=== PATIENT | male | born 1945 | race Caucasian/White ===

== ENCOUNTER 2016-04-12 13:33 | Emergency (ER) | payer MEDICARE, MEDICAID ==
[2016-04-12 14:07] VITALS: BMI 24.3
[2016-04-12 14:08] VITALS: BP 119/74; PULSE 88; TEMP 98
[2016-04-12] MEDS ORDERED: LIDOCAINE 2% 5 ML (PRESERVATIVE FREE) VIAL INF ONE (16:43)
[2016-04-12] MEDS ORDERED: DIPHTHERIA AND TETANUS (ADULT) 0.5 ML SYR IM ONE (16:43)
[2016-04-12] MEDS ORDERED: TRAMADOL HCL 50 MG TAB PO ONE (16:43)
--- NOTE | 2016-04-12 17:15 | EDPRACDOC ---
- General Information Chief Complaint: Wound Information Source: Patient Mode of Arrival:: Ambulance Home Medications: Home Medications Acetaminophen Ex Str Tablet [TYLENOL EXTRA STRENGTH Tablet] 1,000 mg PO .PRN PRN 09/03/13 Tamsulosin HCl [Flomax] 0.4 mg PO DAILY 09/03/13 Prednisone [Deltasone] 20 mg PO BID #10 tablet 02/07/16 Hydrocodone Bit/Acetaminophen [Hydrocodon-Acetaminophen 5-325] 1 tab PO Q6H PRN #15 tab 04/12/16 Allergies/Adverse Reactions: Allergies Allergy/AdvReac Type Severity Reaction Status Date / Time virginiamycin [Virginiamycin] Allergy See Verified 04/12/16 14:07 Comments - History of Present Illness Onset: TODAY HPI: PT PRESENTS WITH LACERATION TO HIS UPPER LIP AND NOSE. STATES HE RAN INTO A PIECE OF SHEET METAL. BLEEDING CONTROLLED - Location NOSE Mechanism: Reports: Cut, Metal - Tetanus Status Last Tetanus: No - Pain Pain Severity: Mild Bleeding: Reports: Controlled Associated Signs & Symptoms: Reports: None - Treatment Prior to ED Arrival Reported Medications/Treatment DIRECTOR STAGE Ibuprofen/Acetaminophen (Dose/ TYLENOL 650MG-1200 Time) EMS Treatment BLS IV No ED Past Medical History - History Reviewed Yes Nurses notes reviewed and agree except as marked - Patient Medical History Respiratory History: Reports: Bronchitis Psychological History: Denies: Depression Surgical History: Reports: Cholecystectomy - Social Medical History Smoking Status: Never smoker EDM Review of Systems - Review of Systems ROS Negative Except as Marked: Yes All systems reviewed and were negative except as marked - Physical Exam Constitutional: Alert Oriented to: Time, Person, Place Last recorded Vital Signs: Last Vital Signs Temp 98.0 F 04/12/16 14:07 Pulse 88 04/12/16 14:07 Resp 20 04/12/16 14:07 BP 119/74 04/12/16 14:07 Pulse Ox 94 04/12/16 14:07 Oxygen Pulse Oxygen Saturation 94 O2 Device Oxygen Flow Rate Fraction of Inspired Oxygen ( FIO2) - HEENT Head: Normal ( normocephalic) Eye Exam: Normal (PERRL, EOMI, Sclera white) Oropharynx: Normal (Pharynx:Moist without exudate,Gums-no swelling) Tympanic Membrane: Normal Nose: Laceration Neck: Normal (FROM, trachea at midline) - Respiratory/Cardiovascular Respiratory: Normal - CTA (BBS clear to auscultation without adventitious sounds ) Cardiovascular: Normal (RRR without murmur, gallop or rub) - GI Auscultation: Normal (NABS) Palpation: Normal (Soft,No rebound or guarding, non distended) Tenderness: Non tender Cho's Sign: Negative Rectal Exam: Deferred - Musculoskeletal Back: Normal (Non-Tender) Extremities: Normal (Normal tone, Pulses 2+ No cyanosis or edema, FROM) - Integumentary Skin: Normal, Warm, Dry Lymphatics: Normal (no adenopathy) - Neurologic Memory Impaired: Normal Motor Function: Normal (Normal tone, Pulses 2+ No cyanosis or edema, FROM) Cranial Nerve: Normal (CN II-X11 intact sensation, strength 5/5) Cerebellar: Normal Mood Description: Normal Perception: Normal ED Procedures - Suture/Laceration NOSE Wound Length (cm): 2 Wound's Depth, Shape: superficial Wound Explored: clean Irrigated w/ Saline (ccs): 20 Betadine Prep?: Yes Anesthesia: 1% Lidocaine Volume Anesthetic (ccs): 2 Wound Margins: Flaps aligned Wound Repaired With: Sutures Suture Size/Type: 6:0, prolene Number of Sutures: 10 Layer Closure?: No Sterile Dressing Applied?: Yes Splint Applied?: Yes Sling Applied?: Yes UPPER LIP Wound Length (cm): 4 Wound's Depth, Shape: superficial Wound Explored: clean Irrigated w/ Saline (ccs): 20 Betadine Prep?: Yes Anesthesia: 1% Lidocaine Volume Anesthetic (ccs): 1 Wound Margins: Flaps aligned Wound Repaired With: Sutures Suture Size/Type: 5:0, prolene Number of Sutures: 3 Layer Closure?: No Sterile Dressing Applied?: No Splint Applied?: No Sling Applied?: No - Differential Diagnosis Laceration Decision Time to Discharge: 17:17 - Departure Disposition: Home Condition: Stable Final Diagnosis: Laceration - injury Instructions: Laceration (ED) Education/Counseling Given To: Patient Education/Counseling Given Regarding: Diagnosis, Treatment, Prognosis, Follow Up Referrals: Carlos Crook MD [Primary Care Provider] - One Week Prescriptions: Hydrocodone Bit/Acetaminophen [Hydrocodon-Acetaminophen 5-325] 1 tab PO Q6H PRN #15 tab PRN Reason: Pain Additional Instructions: KEEP AREA CLEAN AND DRY. CHANGE THE DRESSING TWICE A DAY. CLEAN WITH DIAL SOAP AND WARM WATER. NO NEED TO APPLY NEOSPORIN AFTER TODAY. PLEASE RETURN TO THE ED IN 7-10 DAY FOR SUTURE REMOVAL. TAKE ALL THE ANTIBIOTICS PRESCRIBED. FOLLOW UP WITH PRIMARY CARE PROVIDER NEXT WEEK. RETURN TO THE ED SOONER FOR SIGNS OF INFECTION SUCH FOUL SMELLING DRAINAGE, REDNESS, EXCESSIVE SWELLING, OR EXCESSIVE PAIN. MAY TAKE TYLENOL OR MOTRIN EVERY 4 HOURS ALTERNATING FOR PAIN. MAY APPLY ICE TO THE AREA FOR PAIN RELIEF.
== END 2016-04-12 17:35 | disposition home or self-care (01) ==
LOC: ED 13:33 → EDMC 17:35
DX: S01.511A Laceration without foreign body of lip, initial encounter (principal); S01.21XA Laceration without foreign body of nose, initial encounter; W22.8XXA Striking against or struck by other objects, initial encounter; Y93.9 Activity, unspecified; Z23 Encounter for immunization
CPT/HCPCS: 12014; 90471; 90714; 99284; A9270; J2001; J3490